=== PATIENT | female | born 1955 ===

== ENCOUNTER 2017-05-15 16:54 | Emergency (ER) | payer BC ==
[2017-05-15 17:21] VITALS: BP 143/73; PULSE 83; RESP 18; TEMP 98.5; O2SAT 98
--- NOTE | 2017-05-15 18:38 | ED PDOC ---
HPI: Female Pain Time Seen by Provider: 05/15/17 17:24 Chief Complaint (Nursing): Female Genitourinary Chief Complaint (Provider): Dysuria x 3 day, no N/V, no fever Past Medical History Vital Signs: Last Vital Signs Temp 98.5 F 05/15/17 17:16 Pulse 83 05/15/17 17:16 Resp 18 05/15/17 17:16 BP 143/73 05/15/17 17:16 Pulse Ox 98 05/15/17 17:16 - Medical History PMH: Asthma, Diabetes, HTN, Hypercholesterolemia - Surgical History Surgical History: Appendectomy, Tonsillectomy - Home Medications Home Medications: Ambulatory Orders Medication Instructions Recorded Aspirin [Aspirin Chewable] 81 mg PO DAILY 07/25/15 Atorvastatin Calcium [Atorvastatin 20 mg PO DAILY 07/25/15 Calcium] Gabapentin [Neurontin] 300 mg PO DAILY 07/25/15 Glimepiride [Amaryl] 4 mg PO DAILY 07/25/15 Lisinopril [Lisinopril] 20 mg PO DAILY 07/25/15 Metformin HCl [Metformin HCl] 1,000 mg PO DAILY 07/25/15 Omeprazole [Prilosec] 20 mg PO DAILY 07/25/15 Pioglitazone Hydrochloride [Actos] 15 mg PO DAILY 07/25/15 Nitrofurantoin Macrocrystals 100 mg PO BID #10 cap 05/15/17 [Macrobid] - Allergies Allergies/Adverse Reactions: Allergies Allergy/AdvReac Type Severity Reaction Status Date / Time No Known Allergies Allergy Verified 05/15/17 17:15 - ECG O2 Sat by Pulse Oximetry: 98 Disposition - Clinical Impression Clinical Impression: UTI (urinary tract infection) - Patient ED Disposition Is Patient to be Admitted: No Counseled Patient/Family Regarding: Diagnosis, Need For Followup, Rx Given - Disposition Referrals: [facility] [Outside] Disposition: Routine/Home Disposition Time: 18:34 Condition: GOOD Prescriptions: Nitrofurantoin Macrocrystals [Macrobid] 100 mg PO BID #10 cap Instructions: Urinary Tract Infection in Women (ED) Print Language: BOLIVIAN
== END 2017-05-15 18:39 | disposition home or self-care (01) ==
LOC: H.ER 16:54
DX: N39.0 Urinary tract infection, site not specified (principal)

== ENCOUNTER 2018-04-22 10:16 | Emergency (ER) | payer BC, OTHER ==
[2018-04-22] MEDS ORDERED: Famotidine 20mg/50ml 40 MG/100 ML BAG IVPB ONE ×2 (11:00→11:15)
[2018-04-22] MEDS ORDERED: Famotidine 20mg/50ml 20 MG/50 ML BAG IVPB ONE (11:00)
[2018-04-22 11:18] LABS: BASO % 0.8 % (0.0-2.0); EOS # 0.1 K/uL (0.0-0.7); EOS % 1.7 % (0.0-4.0); HEMOGLOBIN 12.7 g/dL (12.0-16.0); LYMPH # 1.5 K/uL (1.0-4.3); MEAN CELL VOLUME 80.6 fl (81.0-99.0); MEAN CORPUSCULAR HEMOGLOBIN 27.6 pg (27.0-31.0); MEAN CORPUSCULAR HGB CONC 34.2 g/dL (33.0-37.0); MEAN PLATELET VOLUME 9.9 fl (7.2-11.7); MONO # 0.5 K/uL (0.0-0.8); MONO % 8.5 % (0.0-10.0); NEUT # 3.3 K/uL (1.8-7.0); NRBC % 0.1 % (0.0-0.0); RBC 4.6 Mil/uL (3.80-5.20); RED CELL DISTRIBUTION WIDTH 15.6 % (11.5-14.5); WHITE BLOOD COUNT 5.4 K/uL (4.8-10.8)
[2018-04-22] MEDS: Sodium Chloride 0.9% 1,000 ML IV SCH ×5 (11:28→15:47)
[2018-04-22 11:47] LABS: ALB/GLOB RATIO 1.2 (1.0-2.1); ALBUMIN 3.5 g/dL (3.5-5.0); ALT/SGPT 60 U/L (9-52); AST/SGOT 68 U/L (14-36); BLOOD UREA NITROGEN 8 mg/dl (7-17); CALCIUM 8.7 mg/dL (8.4-10.2); GFR AFRICAN-AMERICAN > 60; GFR NON-AFRICAN AMERICAN > 60; LIPASE 41 U/L (23-300)
[2018-04-22 12:00] LABS: SQUAMOUS EPITHIAL 1 /hpf (0-5); URINE AMORPHOUS SEDIMENT RARE /ul (<OCC); URINE BILIRUBIN NEGATIVE (NEGATIVE); URINE BLOOD NEGATIVE (NEGATIVE); URINE CLARITY CLEAR (Clear); URINE COLOR YELLOW (YELLOW); URINE GLUCOSE (UA) NEG (Normal); URINE LEUKOCYTE ESTERASE MOD Leu/uL (Negative); URINE PROTEIN NEGATIVE (NEGATIVE)
--- NOTE | 2018-04-22 13:03 | ED PDOC ---
HPI: Abdomen Time Seen by Provider: 04/22/18 10:30 Chief Complaint (Nursing): Abdominal Pain Chief Complaint (Provider): Abdominal Pain History Per: Patient Onset/Duration Of Symptoms: Days (x7) Outside of [place] travel?: Yes Other Location:: [place] Current Symptoms Are (Timing): Still Present Location Of Pain/Discomfort: Diffuse Associated Symptoms: Fever (tactile), Diarrhea. denies: Nausea, Vomiting, Urinary Symptoms Additional Complaint(s): 62 year old with a past medical history of Type II diabetes, HTN, high cholesterol, and breast cancer, presents to the ED with complaints of diffuse abdominal pain, onset one week ago. Patient states pain is noticeably worse on the left lower side. Patient described pain as intermittent, rating at 6/10. In addition, patient reports she returned from [place] on Sunday (04/14/2018) and is unsure if that is contributing to symptoms. Patient reports she has prior abdominal surgery (an appendectomy). Patient denies pain since arrival in the ED. Patient states that her associated symptoms are 20 episode of non-bloody diarrhea and tactile fever over the past week. Otherwise, (-) sick contacts, (- ) nausea, (-) vomiting, (-) urinary symptoms, (-) vaginal bleeding, (-) vaginal discharge, (-) medications prior to arrival. PMD: Dr. Bebeto Garg. Past Medical History Reviewed: Historical Data, Nursing Documentation, Vital Signs Vital Signs: Last Vital Signs Temp 98.3 F 04/22/18 16:46 Pulse 81 04/22/18 16:46 Resp 15 04/22/18 16:46 BP 134/72 04/22/18 16:46 Pulse Ox 97 04/26/18 01:18 - Medical History PMH: Diabetes, HTN, Hypercholesterolemia Other PMH: Breast Cancer - Surgical History Surgical History: Appendectomy, Back Surgery, Tonsillectomy - Family History Family History: States: Unknown Family Hx - Social History Current smoker - smoking cessation education provided: No Alcohol: None Drugs: Denies - Home Medications Home Medications: Ambulatory Orders Medication Instructions Recorded Aspirin [Aspirin Chewable] 81 mg PO DAILY 07/25/15 Atorvastatin Calcium [Atorvastatin 20 mg PO DAILY 07/25/15 Calcium] Gabapentin [Neurontin] 300 mg PO DAILY 07/25/15 Glimepiride [Amaryl] 4 mg PO DAILY 07/25/15 Lisinopril [Lisinopril] 20 mg PO DAILY 07/25/15 Metformin HCl [Metformin HCl] 1,000 mg PO DAILY 07/25/15 Omeprazole [Prilosec] 20 mg PO DAILY 07/25/15 Pioglitazone Hydrochloride [Actos] 15 mg PO DAILY 07/25/15 Nitrofurantoin Macrocrystals 100 mg PO BID #10 cap 05/15/17 [Macrobid] Dicyclomine [Bentyl] 20 mg PO TID PRN #12 tab 04/22/18 - Allergies Allergies/Adverse Reactions: Allergies Allergy/AdvReac Type Severity Reaction Status Date / Time No Known Allergies Allergy Verified 04/22/18 10:28 Review of Systems ROS Statement: Except As Marked, All Systems Reviewed And Found Negative Constitutional: Positive for: Fever (tactile fever) Gastrointestinal: Positive for: Abdominal Pain (diffuse abdominal pain, worse on left lower side. ), Diarrhea (20 episodes of non-bloody, non-bilious ). Negative for: Nausea, Vomiting Genitourinary Female: Negative for: Dysuria, Vaginal Discharge, Vaginal Bleeding Physical Exam - Reviewed Nursing Documentation Reviewed: Yes Vital Signs Reviewed: Yes - Physical Exam Comments: GENERAL APPEARANCE: Patient is awake, alert, oriented x 3, in no acute distress , resting comfortably. SKIN: Warm, dry; (-) cyanosis. EYES: (-) conjunctival pallor, (-) scleral icterus. ENMT: Mucous membranes moist. NECK: Supple, FROM CHEST AND RESPIRATORY: (-) rales, (-) rhonchi, (-) wheezes; breath sounds equal bilaterally. Speaking in full sentences, respirations even and nonlabored. HEART AND CARDIOVASCULAR: (-) irregularity; (-) murmur, (-) gallop. ABDOMEN AND GI: (+) mild distention. Bowel sounds active x4; mild, diffuse tenderness to abdomen. (-) guarding, (-) rebound, (-) palpable masses, (-) CVA tenderness, (-) Rovsings, (-) Mc[place]neys (-) [place]. EXTREMITIES: (-) deformity, (-) edema, (+) distal pulses. NEURO AND PSYCH: Mental status as above; (-) focal findings. Gait steady, speech clear. (-) facial asymmetry (-) aphasia - Laboratory Results Result Diagrams: 04/22/18 11:00 04/22/18 11:00 - ECG O2 Sat by Pulse Oximetry: 97 (RA) Pulse Ox Interpretation: Normal Medical Decision Making Medical Decision Making: Time: 1045 Impression: Abdominal Pain and diarrhea Plan: -- Bentyl 20 mg PO -- Sodium Chloride 1000 mls/hr -- Toradol 15 mg IVP -- Blood Culture -- Pepcid 40 mg in 100 ml IVPB -- CBC with differentials -- Lipase -- CMP -- Stool culture -- Urinalysis -- Urine Culture -- Glucose, POC Routine Accucheck: 110 Time: 1300 -- Re-evaluation: Patient now presents with right upper quadrant pain and positive Calvert's. Patient has slight elevation of LFTs. Decision made for CT scan abd/pel with contrast. [address] scan. [address] without incident. No additional complaints at this time. Resting comfortably. 1605 CT reviewed, radiology report follows PROCEDURE: CT Abdomen and Pelvis with contrast HISTORY: diffuse abd pain, slight elevation LFTs, diarrhea COMPARISON: None. TECHNIQUE: CT scan of the abdomen and pelvis was performed after administration of intravenous contrast. Oral contrast was not administered. Coronal and sagittal reformatted images were obtained. Contrast dose: 95 mL Omnipaque 300 Radiation dose: Total exam DLP = 959.32 mGy-cm. This CT exam was performed using one or more of the following dose reduction techniques: Automated exposure control, adjustment of the mA and/or kV according to patient size, and/or use of iterative reconstruction technique. FINDINGS: LOWER THORAX: There is subsegmental atelectasis in the lower lobes. . LIVER: There is mild hepatomegaly and diffuse fatty infiltration in the liver. No gross lesion or ductal dilatation. GALLBLADDER AND BILE DUCTS: No calcified gallstones. PANCREAS: Normal in size with homogeneous enhancement. No gross lesion or ductal dilatation. SPLEEN: Mild splenomegaly. No focal lesion. ADRENALS: No discrete nodule. KIDNEYS AND URETERS: Normal in size with homogeneous enhancement. No hydronephrosis. No solid mass. VASCULATURE: No aortic aneurysm. BOWEL: The small bowel loops are normal in caliber. There is no bowel dilatation or obstruction. APPENDIX: Surgically absent. PERITONEUM: No free fluid. No free air. LYMPH NODES: No enlarged lymph nodes. BLADDER: Grossly normal in appearance. REPRODUCTIVE: The uterus is surgically absent. BONES: No acute fracture. Postsurgical changes of anterior fusion and L4 and L5 and multilevel degenerative changes. OTHER FINDINGS: None. IMPRESSION: No acute abdominal or pelvic abnormality. Specifically, no evidence for enterocolitis or bowel obstruction. Mild hepatosplenomegaly and fatty liver. 1615 On re-evaluation, patient reports improvement of symptoms, denies any abdominal pain, nausea, vomiting, or diarrhea at this time. On exam, patient remains AAOx3 , in no acute distress. Lungs clear to auscultation, cardiac RRR, abdomen soft, non-tender, repeat neuro exam shows no focal findings. Repeat BP:134/72 Repeat HR: 81 VSS, stable for discharge. Lab/Diagnostic results d/w the patient in great detail. Diagnosis of abdominal pain, elevated LFTs, diarrhea d/w the patient. Based on history, exam and diagnostic results, plan will be for outpatient follow up with GI. Patient instructed to follow-up with pmd / referral provided / the clinic in 1- 2 days without fail. Advised to take medication as prescribed. Return to the emergency room at any time for any new or worsening symptoms. Patient states she fully agrees with and understands discharge instructions. States that she agrees with the plan and disposition. Verbalized and repeated discharge instructions and plan. I have given the patient opportunity to ask any additional questions. Scribe Attestation: Documented by Claudette Cheema, acting as a scribe for Amaris Killian PA-C Provider Scribe Attestation: All medical record entries made by the Scribe were at my direction and personally dictated by me. I have reviewed the chart and agree that the record accurately reflects my personal performance of the history, physical exam, medical decision making, and the department course for this patient. I have also personally directed, reviewed, and agree with the discharge instructions and disposition. Disposition - Clinical Impression Clinical Impression: Abdominal pain, Diarrhea, Fatty liver, Elevated LFTs - Patient ED Disposition Is Patient to be Admitted: No Counseled Patient/Family Regarding: Studies Performed, Diagnosis, Need For Followup, Rx Given - Disposition Referrals: Familia Decker MD [Staff Provider] - Disposition: Routine/Home Disposition Time: 16:10 Condition: IMPROVED Additional Instructions: FOLLOW UP WITH PMD/GI IN 1-2 DAYS WITHOUT FAIL RETURN TO ED WITH ANY NEW OR WORSENING SYMPTOMS. Prescriptions: Dicyclomine [Bentyl] 20 mg PO TID PRN #12 tab PRN Reason: Diarrhea Instructions: Diarrhea in Adolescents and Adults, Acute Abdomen (Belly Pain), Liver Function Test, Nonalcoholic Fatty Liver Disease (DC) Forms: [employer] (Canadian) Print Language: MICRONESIAN - POA Present On Arrival: None Results - Lab Results Lab Results: 04/22/18 04/22/18 04/22/18 11:32 11:31 11:00 WBC RBC Hgb Hct MCV MCH MCHC RDW Plt Count MPV Neut % (Auto) Lymph % (Auto) [place] % (Auto) Eos % (Auto) Baso % (Auto) Neut # (Auto) Lymph # (Auto) [place] # (Auto) Eos # (Auto) Baso # (Auto) Sodium 141 Potassium 3.9 Chloride 104 Carbon Dioxide 26 Anion Gap 15 BUN 8 Creatinine 0.4 L Est GFR ( Amer) > 60 Est GFR (Non-Af Amer) > 60 POC Glucose (mg/dL) 110 Random Glucose 121 H Calcium 8.7 Total Bilirubin 0.5 AST 68 H ALT 60 H Alkaline Phosphatase 55 Total Protein 6.5 Albumin 3.5 Globulin 2.9 Albumin/Globulin Ratio 1.2 Lipase 41 Urine Color Yellow Urine Clarity Clear Urine pH 8.0 Ur Specific [place] 1.014 Urine Protein Negative Urine Glucose (UA) Neg Urine Ketones Negative Urine Blood Negative Urine Nitrate Negative Urine Bilirubin Negative Urine Urobilinogen 2.0 H Ur Leukocyte Esterase Mod Urine RBC (Auto) 2 Urine Microscopic WBC 21 H Ur Squamous Epith Cells 1 Amorphous Sediment Rare H 04/22/18 11:00 WBC 5.4 RBC 4.60 Hgb 12.7 Hct 37.0 MCV 80.6 L MCH 27.6 MCHC 34.2 RDW 15.6 H Plt Count 164 MPV 9.9 Neut % (Auto) 61.0 Lymph % (Auto) 28.0 [place] % (Auto) 8.5 Eos % (Auto) 1.7 Baso % (Auto) 0.8 Neut # (Auto) 3.3 Lymph # (Auto) 1.5 [place] # (Auto) 0.5 Eos # (Auto) 0.1 Baso # (Auto) 0.0 Sodium Potassium Chloride Carbon Dioxide Anion Gap BUN Creatinine Est GFR ( Amer) Est GFR (Non-Af Amer) POC Glucose (mg/dL) Random Glucose Calcium Total Bilirubin AST ALT Alkaline Phosphatase Total Protein Albumin Globulin Albumin/Globulin Ratio Lipase Urine Color Urine Clarity Urine pH Ur Specific [place] Urine Protein Urine Glucose (UA) Urine Ketones Urine Blood Urine Nitrate Urine Bilirubin Urine Urobilinogen Ur Leukocyte Esterase Urine RBC (Auto) Urine Microscopic WBC Ur Squamous Epith Cells Amorphous Sediment
[2018-04-22] MEDS ORDERED: Iohexol 240 (50 ml) PO STA (13:07)
[2018-04-22] MEDS ORDERED: Iohexol 240 (50 ml) ONE (13:56)
[2018-04-22] MEDS ORDERED: Sodium Chloride 0.9% 50 ML IV ONE (15:30)
[2018-04-22] MEDS ORDERED: Iohexol 300 100 ML IJ ONE (15:30)
--- NOTE | 2018-04-22 16:05 | CT ---
PROCEDURE: CT Abdomen and Pelvis with contrast HISTORY: diffuse abd pain, slight elevation LFTs, diarrhea COMPARISON: None. TECHNIQUE: CT scan of the abdomen and pelvis was performed after administration of intravenous contrast. Oral contrast was not administered. Coronal and sagittal reformatted images were obtained. Contrast dose: 95 mL Omnipaque 300 Radiation dose: Total exam DLP = 959.32 mGy-cm. This CT exam was performed using one or more of the following dose reduction techniques: Automated exposure control, adjustment of the mA and/or kV according to patient size, and/or use of iterative reconstruction technique. FINDINGS: LOWER THORAX: There is subsegmental atelectasis in the lower lobes. . LIVER: There is mild hepatomegaly and diffuse fatty infiltration in the liver. No gross lesion or ductal dilatation. GALLBLADDER AND BILE DUCTS: No calcified gallstones. PANCREAS: Normal in size with homogeneous enhancement. No gross lesion or ductal dilatation. SPLEEN: Mild splenomegaly. No focal lesion. ADRENALS: No discrete nodule. KIDNEYS AND URETERS: Normal in size with homogeneous enhancement. No hydronephrosis. No solid mass. VASCULATURE: No aortic aneurysm. BOWEL: The small bowel loops are normal in caliber. There is no bowel dilatation or obstruction. APPENDIX: Surgically absent. PERITONEUM: No free fluid. No free air. LYMPH NODES: No enlarged lymph nodes. BLADDER: Grossly normal in appearance. REPRODUCTIVE: The uterus is surgically absent. BONES: No acute fracture. Postsurgical changes of anterior fusion and L4 and L5 and multilevel degenerative changes. OTHER FINDINGS: None. IMPRESSION: No acute abdominal or pelvic abnormality. Specifically, no evidence for enterocolitis or bowel obstruction. Mild hepatosplenomegaly and fatty liver.
[2018-04-22 16:47] VITALS: BP 134/72; PULSE 81; RESP 15; TEMP 98.3
[2018-04-26 01:12] VITALS: O2SAT 97
== END 2018-04-22 16:47 | disposition home or self-care (01) ==
LOC: H.ER 10:16
DX: R10.9 Unspecified abdominal pain (principal); R19.7 Diarrhea, unspecified; K76.0 Fatty (change of) liver, not elsewhere classified; R94.5 Abnormal results of liver function studies; E11.9 Type 2 diabetes mellitus without complications; E78.00 Pure hypercholesterolemia, unspecified; I10 Essential (primary) hypertension; J45.909 Unspecified asthma, uncomplicated; Z79.82 Long term (current) use of aspirin; Z79.84 Long term (current) use of oral hypoglycemic drugs
CPT/HCPCS: 74177; 80053; 81003; 82948; 83690; 85025; 87040; 87086; 96365; 96366; 96375; 99283; J1885; J7030; Q9966; Q9967

== ENCOUNTER 2018-11-07 23:51 | Emergency (ER) | payer OTHER, SELFPAY ==
[2018-11-08 00:33] VITALS: BMI 35.2
[2018-11-08 00:37] VITALS: BP 166/67; PULSE 75; RESP 16; TEMP 97.2; O2SAT 100
[2018-11-08 03:15] LABS: BASO % 0.8 % (0.0-2.0); EOS # 0.5 K/uL (0.0-0.7); EOS % 7.8 % (0.0-4.0); HEMOGLOBIN 12.4 g/dL (12.0-16.0); LYMPH # 2.3 K/uL (1.0-4.3); MEAN CELL VOLUME 83.5 fl (81.0-99.0); MEAN CORPUSCULAR HEMOGLOBIN 27.2 pg (27.0-31.0); MEAN CORPUSCULAR HGB CONC 32.5 g/dL (33.0-37.0); MONO # 0.5 K/uL (0.0-0.8); MONO % 8.3 % (0.0-10.0); NEUT # 2.9 K/uL (1.8-7.0); NEUT % 46.1 % (50.0-75.0); NRBC % 0.4 % (0.0-0.0); RBC 4.57 Mil/uL (3.80-5.20); RED CELL DISTRIBUTION WIDTH 15.3 % (11.5-14.5); WHITE BLOOD COUNT 6.2 K/uL (4.8-10.8)
--- NOTE | 2018-11-08 03:16 | ED PDOC ---
HPI: Skin/Bite Injury Time Seen by Provider: 11/08/18 01:49 Chief Complaint (Nursing): Abnormal Skin Integrity Chief Complaint (Provider): Abnormal Skin Integrity History Per: Patient History/Exam Limitations: no limitations Onset/Duration Of Symptoms: Days (x3) Quality Of Symptoms: Itching Additional Complaint(s): 63 y/o female with history of diabetes HTN, dyslipidemia, presents to the ED complaining of a rash, onset x3 days ago. Patient is currently under the care of a wound care center for venous stasis ulcer of the right lower extremity. Patient states she developed a diffuse itchy rash over the last 3 days. Patient denies any known allergies or new exposures. Denies lip or tongue swelling. Patient describes rash as red itchy and diffuse. No associated fever, cough, shortness of breath or chest pain. Past Medical History Reviewed: Historical Data, Nursing Documentation, Vital Signs Vital Signs: Last Vital Signs Temp 97.2 F L 11/08/18 00:33 Pulse 75 11/08/18 00:33 Resp 16 11/08/18 00:33 BP 166/67 H 11/08/18 00:33 Pulse Ox 100 11/08/18 00:33 - Medical History PMH: Asthma, Diabetes, HTN, Hypercholesterolemia - Surgical History Surgical History: Appendectomy, Back Surgery, Tonsillectomy - Family History Family History: States: Unknown Family Hx - Social History Current smoker - smoking cessation education provided: No Alcohol: None Drugs: Denies - Home Medications Home Medications: Ambulatory Orders Medication Instructions Recorded Aspirin [Aspirin Chewable] 81 mg PO DAILY 07/25/15 Atorvastatin Calcium 20 mg PO DAILY 07/25/15 Gabapentin [Neurontin] 300 mg PO DAILY 07/25/15 Glimepiride [Amaryl] 4 mg PO DAILY 07/25/15 Lisinopril 20 mg PO DAILY 07/25/15 Metformin HCl 1,000 mg PO DAILY 07/25/15 Omeprazole [Prilosec] 20 mg PO DAILY 07/25/15 Pioglitazone Hydrochloride [Actos] 15 mg PO DAILY 07/25/15 Nitrofurantoin Macrocrystals 100 mg PO BID #10 cap 05/15/17 [Macrobid] Dicyclomine [Bentyl] 20 mg PO TID PRN #12 tab 04/22/18 Cetirizine HCl [Zyrtec] 10 mg PO QAM #10 capsule 11/08/18 Famotidine [Pepcid] 20 mg PO Q12 #14 tab 11/08/18 predniSONE [predniSONE Tab] 60 mg PO QAM #12 tab 11/08/18 - Allergies Allergies/Adverse Reactions: Allergies Allergy/AdvReac Type Severity Reaction Status Date / Time No Known Allergies Allergy Verified 04/22/18 10:28 Review of Systems ROS Statement: Except As Marked, All Systems Reviewed And Found Negative Constitutional: Negative for: Fever Cardiovascular: Negative for: Chest Pain Respiratory: Negative for: Cough, Shortness of Breath Skin: Positive for: Rash Physical Exam - Reviewed Nursing Documentation Reviewed: Yes Vital Signs Reviewed: Yes - Physical Exam Appears: Positive for: Well, Non-toxic, No Acute Distress Head Exam: Positive for: ATRAUMATIC, NORMAL INSPECTION, NORMOCEPHALIC Skin: Positive for: Rash (Pruritic; diffuse urticarial rash) Eye Exam: Positive for: EOMI, Normal appearance, PERRL Neck: Positive for: Normal, Painless ROM, Supple Cardiovascular/Chest: Positive for: Regular Rate, Rhythm. Negative for: Murmur Respiratory: Positive for: Normal Breath Sounds. Negative for: Respiratory Distress Gastrointestinal/Abdominal: Positive for: Normal Exam, Soft. Negative for: Tenderness Extremity: Positive for: Normal ROM, Other (venous stasis ulcer to the distal surface of right tibia, erythematous; no drainage, no warmth on palpation). Negative for: Pedal Edema, Deformity Neurologic/Psych: Positive for: Alert, Oriented. Negative for: Motor/Sensory Deficits - Laboratory Results Result Diagrams: 11/08/18 03:07 11/08/18 03:07 - ECG O2 Sat by Pulse Oximetry: 100 (RA) Pulse Ox Interpretation: Normal Medical Decision Making Medical Decision Making: Time: 02:34 Initial Impression: 63 y/o female with nonspecific allergic reaction Initial Plan: * CMP * CBC w/ diff * PTT * Prothrombin time * Benadryl * Pepcid * SoluMedrol * UA 04:30 Labs reviewed no clinically significant abnormalities. Patient reports improvement of symptoms. Stable for discharge. Diagnosis is allergic reaction. Scribe Attestation: Documented by Arron Yates acting as a scribe for Margarito Thao MD. Provider Scribe Attestation: All medical record entries made by the Scribe were at my direction and personally dictated by me. I have reviewed the chart and agree that the record accurately reflects my personal performance of the history, physical exam, medical decision making, and the department course for this patient. I have also personally directed, reviewed, and agree with the discharge instructions and disposition. Disposition - Clinical Impression Clinical Impression: Allergic reaction - Patient ED Disposition Is Patient to be Admitted: No - Disposition Disposition: Routine/Home Disposition Time: 04:30 Condition: STABLE Additional Instructions: LASHAE SQUIRES, thank you for letting us take care of you today. Your provider was Margarito Thao MD and you were treated for ANXIETY. The emergency medical care you received today was directed at your acute symptoms. If you were prescribed any medication, please fill it and take as directed. It may take several days for your symptoms to resolve. Return to the Emergency Department if your symptoms worsen, do not improve, or if you have any other problems. Please contact your doctor or call one of the physicians/clinics you have been referred to that are listed on the Patient Visit Information form that is included in your discharge packet. Bring any paperwork you were given at discharge with you along with any medications you are taking to your follow up visit. Our treatment cannot replace ongoing medical care by a primary care provider outside of the emergency department. Thank you for allowing the [facility] team to be part of your care today. If you had an X-Ray or CT scan: A Radiologist will review the ED reading if any change in treatment is needed we will contact you. If you had a blood, urine, or wound culture: It will take several days for the results, if any change in treatment is needed we will contact you. If you had an STI test: It will take 48 hours for the results. Please call after 1 week if you have not heard back. Prescriptions: Cetirizine HCl [Zyrtec] 10 mg PO QAM #10 capsule Famotidine [Pepcid] 20 mg PO Q12 #14 tab predniSONE [predniSONE Tab] 60 mg PO QAM #12 tab Instructions: Skin Rash Forms: [facility] (Amharic)
[2018-11-08 03:21] LABS: PROTHROMBIN TIME 11.8 Seconds (9.8-13.1)
[2018-11-08 03:24] LABS: PARTIAL THROMBOPLASTIN TIME 33.3 Seconds (25.6-37.1)
[2018-11-08 03:25] LABS: ALB/GLOB RATIO 1.4 (1.0-2.1); ALBUMIN 4.1 g/dL (3.5-5.0); ALT/SGPT 38 U/L (9-52); AST/SGOT 39 U/L (14-36); BLOOD UREA NITROGEN 9 mg/dl (7-17); CALCIUM 9.3 mg/dL (8.4-10.2); GFR NON-AFRICAN AMERICAN > 60
== END 2018-11-08 05:18 | disposition home or self-care (01) ==
LOC: H.ER 23:51
DX: T78.40XA Allergy, unspecified, initial encounter (principal); E11.622 Type 2 diabetes mellitus with other skin ulcer; E78.00 Pure hypercholesterolemia, unspecified; I10 Essential (primary) hypertension; L97.919 Non-pressure chronic ulcer of unspecified part of right lower leg with unspecified severity; Z79.84 Long term (current) use of oral hypoglycemic drugs
CPT/HCPCS: 80053; 85025; 85610; 85730; 96374; 99284; J2930